=== PATIENT | male | born 1965 | race Caucasian/White ===

== ENCOUNTER 2019-07-15 23:26 | Emergency (ER) | payer OTHER ==
[~2019-07-15] VITALS: Ht 210.8 cm; Wt 118.2 kg
[2019-07-16] MEDS ORDERED: methylPREDNISolone sod succ 125mg/2ml vial IM ONE (00:35)
[2019-07-16] MEDS ORDERED: PRED20TA PO (01:14)
[2019-07-16] MEDS ORDERED: EPIN0.3P3 IM (01:14)
[2019-07-16 01:48] VITALS: BP 130/69
== END 2019-07-16 01:49 | disposition home or self-care (01) ==
LOC: ER 23:29
DX: T63.441A Toxic effect of venom of bees, accidental (unintentional), initial encounter (principal); Z98.890 Other specified postprocedural states; Y92.89 Other specified places as the place of occurrence of the external cause
CPT/HCPCS: 96372; 99283; J2930

== ENCOUNTER 2022-08-21 19:03 | Emergency (ER) | payer MEDICARE ==
[~2022-08-21] VITALS: Ht 185.4 cm; Wt 117.8 kg
[~2022-08-21 19:03] MED LIST: EPIN0.3P3 IM
[2022-08-21 19:22] VITALS: BP 129/81
[2022-08-21] MEDS ORDERED: NIRM1TAB PO (19:51)
== END 2022-08-21 20:06 | disposition home or self-care (01) ==
LOC: ER 19:04
DX: U07.1 COVID-19 (principal); E78.00 Pure hypercholesterolemia, unspecified; Z79.899 Other long term (current) drug therapy
CPT/HCPCS: 99283

== ENCOUNTER 2024-09-07 16:31 | Emergency (ER) | payer OTHER ==
[~2024-09-07] VITALS: Ht 185.4 cm; Wt 112.3 kg
[~2024-09-07 16:31] MED LIST changes: +NIRM1TAB PO
[2024-09-07] MEDS ORDERED: CEPH-585 PO (19:47)
[2024-09-07] MEDS ORDERED: cephalexin 250mg capsule PO ONE (19:50)
[2024-09-07] MEDS: diphenhydrAMINE 25mg capsule PO ONE (19:53)
[2024-09-07] MEDS: cephalexin 500mg capsule PO ONE (19:53)
[2024-09-07 19:57] VITALS: BP 135/88; PULSE 100; RESP 20; TEMP 98.8; O2SAT 98
== END 2024-09-07 19:58 | disposition home or self-care (01) ==
LOC: ER 16:31
DX: L23.7 Allergic contact dermatitis due to plants, except food (principal); Z98.890 Other specified postprocedural states; Z79.899 Other long term (current) drug therapy
CPT/HCPCS: 99283; Q0163